=== PATIENT | male | born 1955 | race Caucasian/White ===

== ENCOUNTER 2018-06-16 05:43 | Outpatient (CLI) | payer MEDICARE ==
[~2018-06-16] VITALS: Ht 182.9 cm; Wt 107.7 kg
[2018-06-16 06:13] LABS: BASOPHILS 0.7 % (0-2); EOSINOPHILS 8.2 % (0-7); HEMOGLOBIN 12.3 g/dL (13.5-17.5); IMMATURE GRANULOCYTES 0.2 % (0-5); LYMPHOCYTES 35.3 % (15-50); MCH 29.3 pg (26.0-34.0); MCHC 33.2 g/dL (31.0-37.0); MCV 88.1 fL (80.0-100.0); MEAN PLATELET VOLUME 9.3 fL (7.4-10.4); MONOCYTES 15.3 % (2-11); NEUTROPHILS 40.3 % (40-80); PLATELET COUNT 341 10x3/uL (130-400); RDW 12.2 % (11.5-14.5); WBC 5.9 10x3/uL (4.8-10.8)
[2018-06-16 06:37] LABS: APTT 40.4 SECONDS (22.8-39.4); INR 1.17 (0.85-1.17); PROTIME 14.3 SECONDS (11.6-15.0)
[2018-06-16 06:44] LABS: ANION GAP 10.8 mmol/L (8-16); CALCIUM 9.6 mg/dL (8.5-10.1); CARBON DIOXIDE 30.6 mmol/L (21.0-32.0); CREATININE - SERUM 1.2 mg/dL (0.6-1.3); POTASSIUM - SERUM 4.4 mmol/L (3.5-5.1)
[2018-06-16] MEDS ORDERED: OXYCODONE HCL10 MG PO (06:58)
[2018-06-16] MEDS ORDERED: FENOFIBRATE134 MG PO (06:59)
[2018-06-16] MEDS ORDERED: MOBIC7.5 MG PO (06:59)
[2018-06-16] MEDS ORDERED: CLARITIN 10 MG10 MG PO (07:00)
[2018-06-16] MEDS ORDERED: CINNAMON500 MG PO (07:00)
[2018-06-16] MEDS ORDERED: NIASPAN500 MG PO (07:01)
[2018-06-16] MEDS ORDERED: TOZAL SOFTGEL1 EACH PO (07:01)
[2018-06-16] MEDS ORDERED: FISH OIL 1,0001 CA1 PO (07:01)
[2018-06-16] MEDS ORDERED: VITAMIN D5000 UNIT PO (07:02)
[2018-06-16] MEDS ORDERED: RED YEAST RICE600 MG PO (07:02)
[2018-06-16 07:15] VITALS: BP 122/71; Ht 182.9 cm; Wt 107.7 kg
--- NOTE | 2018-06-16 10:00 | NUR ---
0945-RECD TO ROOM FROM INTERVENTIONAL RADIOLOGY. AROUSES EASILY. DENIES PAIN/NAUSEA. IV PATENT. TAKING PO FLUIDS WITHOUT NAUSEA.
== END 2018-06-16 11:45 | disposition home or self-care (01) ==
LOC: D.SP 05:43 → D.CT 09:00 → D.SP 11:45 → D.CT 13:00
PROVIDERS: Radiology Vascular & Interventional Radiology; ATTEND Nurse Practitioner
DX: C41.3 Malignant neoplasm of ribs, sternum and clavicle (principal); Z01.812 Encounter for preprocedural laboratory examination